=== PATIENT | male | born 1960 | race Two or more races ===

== ENCOUNTER 2017-11-22 11:08 | Emergency (ER) | payer MEDICAID ==
[~2017-11-22] VITALS: Ht 182.9 cm; Wt 70.0 kg
[2017-11-22 11:40] VITALS: BP 124/77
[2017-11-22 13:17] LABS: *AMPHETAMINES SCREEN URINE NEGATIVE (NEGATIVE)
[2017-11-22 13:18] LABS: *BARBITURATES SCREEN URINE NEGATIVE (NEGATIVE); *COCAINE SCREEN URINE NEGATIVE (NEGATIVE); OPIATES URINE SCREEN NEGATIVE (NEGATIVE); PHENCYCLIDINE URINE SCREEN NEGATIVE (NEGATIVE)
[2017-11-22 13:19] LABS: CANNABINOID URINE SCREEN PRESUMTIVE POSITIVE (NEGATIVE)
[2017-11-22 13:20] LABS: *BENZODIAZEPINES SCREEN URINE NEGATIVE (NEGATIVE)
[2017-11-22 13:22] LABS: METHADONE URINE SCREEN NEGATIVE (NEGATIVE)
[2017-11-22 13:42] LABS: HEPATITIS B SURFACE ANTIGEN NEGATIVE
[2017-11-22 14:11] LABS: HEPATITIS B CORE AB IGM NEGATIVE
[2017-11-22 14:12] LABS: HEPATITIS A AB IGM NEGATIVE (NEGATIVE)
[2017-11-26 08:20] LABS: HIV SCREEN 4G Non Reactive (Non Reactive)
== END 2017-11-22 14:47 | disposition home or self-care (01) ==
LOC: ER 11:46
DX: S61.239A Puncture wound without foreign body of unspecified finger without damage to nail, initial encounter (principal); F17.200 Nicotine dependence, unspecified, uncomplicated; F12.10 Cannabis abuse, uncomplicated; W46.0XXA Contact with hypodermic needle, initial encounter; Y93.89 Activity, other specified; Y92.89 Other specified places as the place of occurrence of the external cause; Y99.8 Other external cause status; Z88.0 Allergy status to penicillin
CPT/HCPCS: 36415; 80305; 86705; 86709; 86803; 87340; 87389; 99284

== ENCOUNTER 2018-01-30 18:49 | Emergency (ER) | payer MEDICAID | END 2018-01-30 23:12 | disposition left against medical advice (07) | LOC: ER 20:33 | DX: Z53.21 Procedure and treatment not carried out due to patient leaving prior to being seen by health care provider (principal) ==

== ENCOUNTER 2021-06-30 15:37 | Emergency (ER) | payer MEDICAID ==
[~2021-06-30] VITALS: Ht 182.9 cm; Wt 66.0 kg
[2021-06-30 16:46] VITALS: BP 121/63
== END 2021-06-30 19:16 | disposition left against medical advice (07) ==
LOC: ER 15:37
DX: Z53.21 Procedure and treatment not carried out due to patient leaving prior to being seen by health care provider (principal)
CPT/HCPCS: 99281

== ENCOUNTER 2021-07-01 03:34 | Emergency (ER) | payer MEDICAID ==
[~2021-07-01] VITALS: Ht 182.9 cm; Wt 70.0 kg
[2021-07-01 03:39] VITALS: BP 124/81
== END 2021-07-01 05:39 | disposition left against medical advice (07) ==
LOC: ER 03:59
DX: Z53.21 Procedure and treatment not carried out due to patient leaving prior to being seen by health care provider (principal)